=== PATIENT | male | born 1980 | race Caucasian/White ===

== ENCOUNTER 2023-10-04 10:05 | Day surgery (SDC) | payer OTHER ==
[~2023-10-04] VITALS: Ht 185.4 cm; Wt 118.8 kg
[~2023-10-04 10:05] MED LIST: ABIL1TAB11 PO; ADME100I SC; ALBU8.5H INH; ARIS2.4I IM; BUPR15TA PO; FLUP5TAB13 PO; FOLI1TAB11 PO; GABA800T4 PO; GLIP10TA6 PO; LANTINJ4 SC; MELA5CAP2 PO; PANT40TA29 PO; SEMA0.257 SQ; SERO1TAB PO; SOFO1TAB PO; SUBL300I PO; SUBL300I SC; THERTAB52 PO; THIA100T7 PO; TRAZ1TAB14 PO; WELLTAB40 PO
[2023-10-04] MEDS: LR 1,000 ML IV SCH (11:33)
[2023-10-04] MEDS ORDERED: fentaNYL 100 MCG/2 ML INJECTION As Ordered ONE (12:43)
[2023-10-04] MEDS ORDERED: propofoL 200 MG/20 ML VIAL As Ordered ONE (12:44)
[2023-10-04] MEDS ORDERED: ACETAMINOPHEN 1000MG 100ML IV BAG As Ordered ONE (12:44)
[2023-10-04] MEDS ORDERED: ONDANSETRON 4MG 2ML VIAL As Ordered ONE (12:44)
[2023-10-04] MEDS ORDERED: ROCURONIUM BROMIDE 50MG/5ML VIAL As Ordered ONE (12:44)
[2023-10-04] MEDS ORDERED: MIDAZOLAM INJ 2MG/2ML VIAL As Ordered ONE (12:44)
[2023-10-04] MEDS ORDERED: LIDOCAINE 2% 100MG/5ML SDV (FOR ANES.) As Ordered ONE (12:44)
[2023-10-04] MEDS ORDERED: SUGAMMADEX SODIUM 500 MG/5 ML VIAL (BRIDION) As Ordered ONE (12:44)
[2023-10-04] MEDS ORDERED: OXYMETAZOLINE 0.05% NASAL SPRAY (AFRIN) As Ordered ONE (12:47)
[2023-10-04] MEDS: AMPICILLIN SOD/SULBACTAM SOD 3 GM in D5W MINI-BAG PLUS 100 ML IV ONE (13:15)
[2023-10-04] MEDS: CHLORHEXIDINE GLUCONATE 0.12 % 15ML UDC (PERIDEX ORAL RINSE) As Ordered ONE (13:30)
[2023-10-04] MEDS: LIDOCAINE 2% W/ EPINEPHRINE 1.7 ML DENTAL INJ As Ordered ONE (13:37)
[2023-10-04] MEDS ORDERED: fentaNYL 100 MCG/2 ML INJECTION IV PRN (14:35)
[2023-10-04] MEDS: oxyCODONE 5MG TAB PO PRN (14:49)
[2023-10-04] MEDS: MORPHINE 2 MG/ML 1ML VIAL IV PRN (14:50)
[2023-10-04] MEDS: ONDANSETRON 4MG 2ML VIAL IV PRN (14:50)
[2023-10-04 15:30] VITALS: BP 159/84; TEMP 98.5; O2SAT 98
== END 2023-10-07 10:48 | disposition home or self-care (01) ==
LOC: M SDC 10:05
PROVIDERS: ATTEND Dentist
DX: K02.9 Dental caries, unspecified (principal); J44.9 Chronic obstructive pulmonary disease, unspecified; E11.40 Type 2 diabetes mellitus with diabetic neuropathy, unspecified; K21.9 Gastro-esophageal reflux disease without esophagitis; F20.9 Schizophrenia, unspecified; B18.2 Chronic viral hepatitis C; F17.218 Nicotine dependence, cigarettes, with other nicotine-induced disorders; Z79.51 Long term (current) use of inhaled steroids; Z79.899 Other long term (current) drug therapy; Z88.1 Allergy status to other antibiotic agents; Z91.013 Allergy to seafood
CPT/HCPCS: 88300; D7210; D7310; D9223; J0131; J0295; J1100; J2250; J2405; J3010